=== PATIENT | female | born 1995 | race Caucasian/White ===

== ENCOUNTER 2017-04-12 22:40 | Emergency (ER) | payer MEDICAID ==
[~2017-04-12] VITALS: Ht 160 cm; Wt 61.2 kg
[~2017-04-12 22:40] MED LIST: ACETAMINOPHEN-1 EAC1 PO; BACTRIM DS TAB1 EACH PO; CEPHALEXIN 500500 M3 PO; CIPRO500 MG PO; CIPROFLOXACIN500 M1 PO; CLONAZEPAM 0.50.5 M1 PO; DOCUSATE SODIU100 MG PO; ELIMITE60 GM TP; HYDROCODONE-AP1 EAC6 PO; IBUPROFEN 800800 MG PO; KEPPRA 500 MG500 M1 PO; MEDROLDOSEPACK PO; NAPROSYN500 MG PO; NICOTINE TRANSD21 M1 TRANSDERM; OSELB75 PO; PROAIR HFA8.5 GM INH; TESSALON PERLE100 MG PO; TRIAMCINOLONE A15 G1 TP; XANAX 1 MG TABLE1 MG PO; ZOFRAN ODT4 MG PO; ZOFRAN ODT4 MG SUBLING; ZPAK PO
[2017-04-12] MEDS ORDERED: KEPPRA 500 MG500 M1 PO (22:58)
[2017-04-12 23:19] LABS: URINE BILIRUBIN NEGATIVE (Negative); URINE BLOOD NEGATIVE (Negative); URINE CLARITY CLEAR; URINE COLOR YELLOW; URINE GLUCOSE-RANDOM NEGATIVE (Negative); URINE KETONES NEGATIVE (Negative); URINE LEUKOCYTES-REFLEX NEGATIVE (Negative); URINE NITRITE-REFLEX NEGATIVE (Negative); URINE PROTEIN NEGATIVE (Negative); URINE SPECIFIC GRAVITY 1.015 (1.005-1.030)
[2017-04-12 23:28] LABS: AMP/METHAMP Negative (Negative); BARBITURATES Negative (Negative); BENZODIAZEPINES POSITIVE (Negative); COCAINE Negative (Negative); METHADONE Negative (Negative); OPIATES Negative (Negative); PCP Negative (Negative); THC POSITIVE (Negative)
[2017-04-12 23:30] LABS: ABSOLUTE EOSINOPHILS 0.1 thou/uL (0.0-0.7); ABSOLUTE LYMPHOCYTES 1.3 thou/uL (0.8-5.3); ABSOLUTE MONOCYTES 0.7 thou/uL (0.0-1.2); ABSOLUTE NEUTROPHILS 7.4 thou/uL (1.6-8.1); BASOPHILS 0.3 %; EOSINOPHILS 1.1 %; HEMATOCRIT 36.6 % (37.0-47.0); HEMOGLOBIN 12.5 gm/dL (12.0-15.0); LYMPHOCYTES 13.4 %; MCH 28.3 pg (26.0-34.0); MCHC 34.2 g/dL (28.0-37.0); MONOCYTES 7.4 %; NUCLEATED RBCS 0 /100WBC; PLATELET COUNT* 258 thou/uL (150-400); POLYS 77.8 %; RBC 4.41 mil/uL (4.20-5.00); RDW-CV 13.3 % (10.5-14.5); WBC 9.5 thou/uL (4.0-11.0)
[2017-04-12 23:41] LABS: CALCIUM 8.1 mg/dL (8.5-10.1); CREATININE 0.7 mg/dL (0.6-1.3); POTASSIUM 3.3 mmol/L (3.5-5.1)
[2017-04-12 23:46] LABS: ALBUMIN 3.4 g/dL (3.4-5.0); TOTAL BILIRUBIN 0.3 mg/dL (<0.1-1.0); TOTAL PROTEIN 6.8 g/dL (6.4-8.2)
[2017-04-13] MEDS ORDERED: ZOFRAN ODT4 MG PO (00:18)
[2017-04-13 00:20] VITALS: BP 110/60
== END 2017-04-13 00:20 | disposition home or self-care (01) ==
LOC: M.ERS 22:40
PROVIDERS: Emergency Medicine
DX: G40.89 Other seizures (principal); F41.9 Anxiety disorder, unspecified; G43.909 Migraine, unspecified, not intractable, without status migrainosus; F17.210 Nicotine dependence, cigarettes, uncomplicated; Z87.898 Personal history of other specified conditions; Z88.5 Allergy status to narcotic agent

== ENCOUNTER 2017-04-15 16:57 | Emergency (ER) | payer MEDICAID ==
[~2017-04-15] VITALS: Ht 160 cm; Wt 61.2 kg
[2017-04-15] MEDS ORDERED: IBUPROFEN 800800 M1 PO (18:25)
[2017-04-15 18:35] VITALS: BP 120/70
== END 2017-04-15 18:36 | disposition home or self-care (01) ==
LOC: M.ERS 16:57
DX: S93.401A Sprain of unspecified ligament of right ankle, initial encounter (principal); G43.909 Migraine, unspecified, not intractable, without status migrainosus; F41.9 Anxiety disorder, unspecified; F17.210 Nicotine dependence, cigarettes, uncomplicated; Z88.5 Allergy status to narcotic agent; W10.8XXA Fall (on) (from) other stairs and steps, initial encounter; Y93.89 Activity, other specified; Y92.89 Other specified places as the place of occurrence of the external cause; Y99.8 Other external cause status

== ENCOUNTER 2017-05-01 14:53 | Emergency (ER) | payer MEDICAID ==
[~2017-05-01] VITALS: Ht 160 cm; Wt 61.2 kg
[~2017-05-01 14:53] MED LIST changes: +IBUPROFEN 800800 M1 PO
[2017-05-01 15:27] LABS: URINE BLOOD NEGATIVE (Negative); URINE CLARITY CLEAR; URINE COLOR YELLOW; URINE GLUCOSE-RANDOM NEGATIVE (Negative); URINE KETONES 1+ (Negative); URINE LEUKOCYTES-REFLEX NEGATIVE (Negative); URINE NITRITE-REFLEX NEGATIVE (Negative); URINE PROTEIN NEGATIVE (Negative)
[2017-05-01 15:29] LABS: ICTOTEST (BILI CONFIRMATORY) Negative (Negative); URINE BILIRUBIN 1+ (Negative)
[2017-05-01 15:33] LABS: AMP/METHAMP Negative (Negative); BARBITURATES Negative (Negative); BENZODIAZEPINES POSITIVE (Negative); COCAINE POSITIVE (Negative); METHADONE Negative (Negative); OPIATES Negative (Negative); PCP Negative (Negative); THC POSITIVE (Negative)
[2017-05-01 15:41] LABS: ABSOLUTE BASOPHILS 0.1 thou/uL (0.0-0.2); ABSOLUTE EOSINOPHILS 0.2 thou/uL (0.0-0.7); ABSOLUTE LYMPHOCYTES 2.8 thou/uL (0.8-5.3); ABSOLUTE MONOCYTES 0.6 thou/uL (0.0-1.2); ABSOLUTE NEUTROPHILS 8.6 thou/uL (1.6-8.1); BASOPHILS 0.7 %; EOSINOPHILS 1.5 %; HEMATOCRIT 41.9 % (37.0-47.0); HEMOGLOBIN 14.5 gm/dL (12.0-15.0); LYMPHOCYTES 22.9 %; MCH 27.9 pg (26.0-34.0); MCHC 34.7 g/dL (28.0-37.0); MCV 80.6 fL (80.0-100.0); MONOCYTES 5.1 %; MPV 6.7 fl. (7.2-11.1); NUCLEATED RBCS 0 /100WBC; PLATELET COUNT* 370 thou/uL (150-400); POLYS 69.8 %; RDW-CV 13.5 % (10.5-14.5); WBC 12.3 thou/uL (4.0-11.0)
[2017-05-01 15:57] LABS: CREATININE 0.8 mg/dL (0.6-1.3); POTASSIUM 3.5 mmol/L (3.5-5.1)
[2017-05-01 16:02] LABS: ACETAMINOPHEN < 2 ug/mL (10-30); ALBUMIN 4.7 g/dL (3.4-5.0); ALCOHOL < 10 mg/dL (<10); SALICYLATE 2.8 mg/dL (2.8-20.0); TOTAL BILIRUBIN 0.6 mg/dL (<0.1-1.0); TOTAL PROTEIN 8.8 g/dL (6.4-8.2)
[2017-05-01] MEDS ORDERED: VISTARIL 25 MG25 M1 PO (17:13)
[2017-05-01 17:20] VITALS: BP 120/85
== END 2017-05-01 17:21 | disposition home or self-care (01) ==
LOC: M.ERS 14:53
PROVIDERS: Physician Assistant
DX: F41.9 Anxiety disorder, unspecified (principal); F19.10 Other psychoactive substance abuse, uncomplicated; F32.9 Major depressive disorder, single episode, unspecified; F17.210 Nicotine dependence, cigarettes, uncomplicated; G43.909 Migraine, unspecified, not intractable, without status migrainosus

== ENCOUNTER 2017-05-03 14:30 | Inpatient (IN) | payer MEDICAID ==
[~2017-05-03] VITALS: Ht 160 cm; Wt 86.2 kg
[~2017-05-03 14:30] MED LIST changes: +VISTARIL 25 MG25 M1 PO
[2017-05-03 14:31] VITALS: BP 130/82
[2017-05-03 14:55] LABS: ABSOLUTE BASOPHILS 0.1 thou/uL (0.0-0.2); ABSOLUTE EOSINOPHILS 0.2 thou/uL (0.0-0.7); ABSOLUTE LYMPHOCYTES 2.7 thou/uL (0.8-5.3); ABSOLUTE MONOCYTES 0.6 thou/uL (0.0-1.2); ABSOLUTE NEUTROPHILS 6.2 thou/uL (1.6-8.1); BASOPHILS 0.7 %; HEMOGLOBIN 13.3 gm/dL (12.0-15.0); LYMPHOCYTES 27.4 %; MCH 28.3 pg (26.0-34.0); MCHC 32.3 g/dL (28.0-37.0); MONOCYTES 6.4 %; MPV 7.7 fl. (7.2-11.1); NUCLEATED RBCS 0 /100WBC; PLATELET COUNT* 329 thou/uL (150-400); POLYS 63.5 %; RBC 4.69 mil/uL (4.20-5.00); RDW-CV 13.7 % (10.5-14.5); WBC 9.8 thou/uL (4.0-11.0)
[2017-05-03 14:56] LABS: MCV 87.5 fL (80.0-100.0)
[2017-05-03 14:58] LABS: CALCIUM 9.4 mg/dL (8.5-10.1); CREATININE 0.7 mg/dL (0.6-1.3); POTASSIUM 3.6 mmol/L (3.5-5.1)
[2017-05-03 15:03] LABS: TOTAL BILIRUBIN 0.5 mg/dL (<0.1-1.0); TOTAL PROTEIN 7.4 g/dL (6.4-8.2)
[2017-05-03 15:21] LABS: URINE BILIRUBIN NEGATIVE (Negative); URINE BLOOD NEGATIVE (Negative); URINE CLARITY CLEAR; URINE COLOR YELLOW; URINE GLUCOSE-RANDOM NEGATIVE (Negative); URINE KETONES NEGATIVE (Negative); URINE LEUKOCYTES-REFLEX NEGATIVE (Negative); URINE NITRITE-REFLEX NEGATIVE (Negative); URINE PROTEIN NEGATIVE (Negative); URINE UROBILINOGEN 0.2 E.U./dl (0.2-1.0)
[2017-05-03 15:29] LABS: AMP/METHAMP Negative (Negative); BARBITURATES Negative (Negative); BENZODIAZEPINES POSITIVE (Negative); COCAINE POSITIVE (Negative); METHADONE Negative (Negative); OPIATES Negative (Negative); PCP Negative (Negative); THC POSITIVE (Negative)
--- NOTE | 2017-05-03 15:29 | NUR ---
PATIENT UNABLE TO ANSWER QUESTIONS. JUST SAYS "MOM, MOM MOM" WHEN ASKED IF SHE WANTS US TO CALL MOM SHE SHAKES HEAD NO. BOY FRIEND AT BEDSIDE ASKED HER IF HE SHOULD CALL HER GRANDMA AND SHE SHOOK HER HEAD NO WELL. DENIES ANY DRUG OR ALCOHOL USE.
[2017-05-03 20:00] VITALS: BP 113/62
[2017-05-04] VITALS (7 sets, daily range): BP systolic 100–110; BP diastolic 56–69
--- NOTE | 2017-05-04 00:23 | NUR ---
PATIENT ADMITTED TO THE FLOOR AT SHIFT CHANGE, ARRIVED APPROX 1999. PATIENT ADMITTED FOR AMS. PATIENT WAS ALERT AND ORIENTED X 4, LUNGS CTA, HR REG, SKIN INTACT EXPECTED AN ABRASION TO FORHEAD, FROM PREVIOUS INCIDENT PRIOR TO COMING IN TODAY IN ER. DR METAL CONTROL COORDINATOR WAS NOTIFIED PATIENT IS ON KEPPRA AT HOME. DR STATED WILL PLACE ORDER FOR KEPPRA. WILL WAITING FOR ORDER APPROX 2319, WAS CALLED TO ROOM. WHEN THIS NURSE ENTERED FOUND PATIENT ON FLOOR WITH PCT AND ANOTHER NURSE AT HER SIDE. PATIENT WAS LOWERED TO GROUND PATIENT TOLD TECH THAT SHE WAS DIZZY. PATIENT WAS SHAKING FOR ABOUT 3 MINS. ATIVAN 1MG GIVEN IV. PLACE IN ROOM CLOSER TO NURSES STATION. KEPPRA START AND HAS SINCE INFUSED. PATIENT IS ALERT AND ORIENTED TO SURROUNDS. BED ALARM ON, CALL LIGHT IN REACH. FALL PRECAUTIONS IN PLACE. PATIENT TOLD SHE IS ON BEDREST REST OF NIGHT.
--- NOTE | 2017-05-04 04:14 | NUR ---
SLEEPING MOST OF NIGHT. CONT. TO MONITOR DUE TO SEIZURE DX. SIDERAILS PADDED, BED IN LOW POSITION, BED ALARM ON. CALL LIGHT WITHIN REACH. CONT. WITH PLAN OF CARE.
--- NOTE | 2017-05-04 09:46 | NUR ---
ASSUMED CARE PF PT THIS AM AROUND 0715- LIMITED RADIOLOGY TECHNICIAN IN PLACE ORDERED, TRACING SR- UPON ASSESSMENT PT NOTED TO BE RESTING IN BED, EYES CLOSED- PT A&O X4- CONTINENT OF BOWEL AND BLADDER- ASSIST X1 WITH TRANSFERS FOR SAFETY, SEIZURE PRECAUTIONS IN PLACE INDICATED- LCTA, RESP EVEN AND UN-LABORED- VSS, O2 SAT 96% ON RA- ABDOMEN SOFT/ROUND/NON-TENDER, BS X4 QUADS- LAST BM REPORTED 05/03/17- IV NOTED TO LEFT AC INTACT AND SL, IV KEPPRA GIVEN THIS AM PRESCRIBED- LEFT ANKLE NOED WITH BRACE IN PLACE R/T REPORTED FX PER PT- PT RATES PAIN 8/10 TO HEAD THIS AM- SCHEDULED TORADOL GIVEN THIS AM PRESCIBED, WITH NOTED EFFECTIVENESS- PT CURRENLTY RESTING IN BED, PHYSICAL SECURITY SPECIALIST AT SIDE COMPLETING TESTING PRESCRIBED- CALL LIGHT AND PERSONAL BELONGINGS WITH IN REACH- HOURLY ROUNDS IN PLACE R/T SAFETY/NEEDS- ALL NEEDS MET AT THIS TIME-WCTM
--- NOTE | 2017-05-04 16:34 | EKG ---
[place] [address] ELECTROCARDIOGRAM REPORT Name: PILIGERALD RIVERS Room: [address] ADM IN .R.#: [id number] Admission: 05/03/17 Attend Phys: Gabby Oquendo Discharge: Date of : [birth year] Report #: [id number] THIS REPORT FOR: //name// [facility] ED Test Date: 2017-05-03 Test Time: 14:36:56 Pat Name: GERALD ALEJANDRE Department: Room: [address] Gender: F Cartridge Filler: Mamadou VILLARREAL : 1995 Requested By: Mercedes Mckinney Order Number: [id number] Pillo MD: Bienvenido Andre Measurements Intervals [place] Rate: 73 P: 51 KS: 148 QRS: 52 QRSD: 101 T: 24 QT: 410 QTc: 452 Interpretive Statements Sinus rhythm Nonspecific T abnormalities, anterior leads Compared to ECG 10/24/2015 09:10:42 no change Electronically Signed On 05-04-2017 16:33:46 DRY CURE WORKER by Bienvenido Andre [email or web address] <ELECTRONICALLY SIGNED> By: Bienvenido Andre MD, [facility] 05/04/17 1633 1436 1436 Bienvenido Andre MD, [facility] /EPI
--- NOTE | 2017-05-04 17:04 | NUR ---
PT CURRENTLY RESTING IN BED, BOYFRIEND AT SIDE- SELF STORAGE MANAGER IN PLACE AND CONTINUED ORDERED, TRACING SR- SEIZURE PRECAUTIONS IN PLACE INDICATED- IV TO LEFT AC INTACT, REINFORCED THIS SHIFT WITH DRESSING CHANGE R/T LEAKAGE- MRI COMPLETED THIS SHIFT WELL EEG ORDERED, POST EARINGS NEEDING TO BE REMOVED PER TECH THIS SHIFT- D/C PENDING NEURO- HERE TO ASSESS THIS SHIFT WITH NEW ORDERS NOTED FOR ECHO, TSH, VIT B12, MRA CAROID W/O CONTRAST AND OF N[place]TON OF [place]IG[place]- COMMUNICATES THAT HE WOULD LIKE PT TO STAY ANOTHER NIGHT TO COMPLETE TESTING WITH POSS D/C 05/05/17- PT DENIES ANY C/O PAIN/DISCOMFORT AT THIS TIME- CALL LIGHT AND PERSONAL BELONGINGS WITH IN REACH-ALL NEEDS MET AT THIS TIME- AMBIKA
--- NOTE | 2017-05-04 22:00 | NUR ---
PT WANTED TO LEAVE AMA, PROVIDER NOTIFIED. NEURO AND PRIMARY CONTACTED. BOTH SIGNED OFFED. HOUSE SUPPERVIOR CALLED IN NEW MEDICATION TO ANABELLA. CM TO SET UP OUT PT ECHO. DISCHARGE INSTRUCTIONS GIVEN TO PT. MONITOR AND IV REMOVED.
[2017-05-04] MEDS ORDERED: FOLIC ACID1 MG PO (22:47)
--- NOTE | 2017-05-05 07:27 | EEG ---
[address] [address] EEG STUDY REPORT Name: GERALD ALEJANDRE Room: [address] IN M.R.#: [id number] Admission: 05/03/17 Attend Phys: Gabby Oquendo Discharge: 05/04/17 Date of : [birth year] Report #: [id number] THIS REPORT FOR: //name// CC: Elisabeth Shelby This patient is being evaluated for a seizure disorder. EEG was done by placing the electrodes by standard 10/20 system of electrode placement. Both referential and sequential montages were used for recording. Background activity in this patient's EEG is about 9 Hz and 30 microvolts. Large portion of this patient's EEG was obtained when the patient was asleep. That is associated with bilaterally symmetrical sleep spindle and vertex sharp waves. Photic stimulation is unremarkable. Throughout the record, no active epileptiform activity was noticed. IMPRESSION: This patient's EEG is within normal limits. No active epileptiform activity was noticed. Thank you very much for this referral. <ELECTRONICALLY SIGNED> By: Qamar Crooks MD 05/05/17 0727 0704 0711Qamar Crooks MD /nt
--- NOTE | 2017-05-05 07:27 | CON ---
[facility] [address] [place] [address] CONSULTATION Name: GERALD ALEJANDRE Room: [address] IN M.R.#: [id number] Admission: 05/03/17 Attend Phys: Gabby Oquendo Discharge: 05/04/17 Date of : [birth year] Report #: [id number] THIS REPORT FOR: //name// CC: Elisabeth Shelby DATE OF SERVICE: 05/04/2017 HISTORY OF PRESENT ILLNESS: This is a 22-year-old female patient who was evaluated by me for seizures. The history is taken from the patient, but all the history is not reliable. Some of the history she provides does not correlate with what is present in the chart. She said a few years ago she bought some tramadol on the street and overdosed herself on tramadol. She had a seizure. She was not put on any anticonvulsants at that time, then she had another seizure at work, which was a grand mal seizure and she was started on Keppra. She has taken Keppra intermittently. She was supposed to be on 500 mg of Keppra twice a day, but at one time, she was supposed to be on 750 b.i.d. She was supposed to follow up with Dr. Sim as per prior notes, but I do not think she ever did. She says that she did not take cocaine for a few weeks, but her urine drug screen is positive for cocaine as well as marijuana. Boyfriend noticed her having a seizure and she may have had another seizure here. She was twitching and was unresponsive after this happened. When she came in she was also unresponsive. REVIEW OF SYSTEMS: It looks like she has a pretty significant substance abuse problem. She does have a history of panic attack. She has a history of what looks like seizures, but it is not certain. FAMILY HISTORY: Negative for congenital epilepsy. SOCIAL HISTORY: She indicates that she has a problem with substance abuse, but she is not straightforward with history. It looks like she has used cocaine recently. PHYSICAL EXAMINATION: When I saw this patient, she was alert, she was responsive. She was able to follow simple commands. Her memory, fund of knowledge was at the baseline. Cranial nerve examination 2-12 was unremarkable. Strength, sensation, reflexes and tone was symmetrical. There was no papilledema. There was no carotid bruit. CARDIAC: Did not show any definite abnormality. Blood pressure was 110/59, pulse was 94, temperature is 97.8. LABORATORY DATA: White count was normal at 9.8. Her calcium was normal and TSH was normal. IMPRESSION: It is possible this patient has seizure. [place] [address] CONSULTATION Name: KYREE ALEJANDREJUSTIN RIVERS Room: [address] IN M.R.#: [id number] Admission: 05/03/17 Attend Phys: Gabby Oquendo Discharge: 05/04/17 Date of : [birth year] Report #: [id number] and polysubstance abuse is very strong. I had a long talk with the patient and indicated that she needs to stop using those substances and should not even use epileptiform prescription medication and potentially catastrophic and fatal complication from this polysubstance abuse. She understood, although she can continue Keppra but she should avoid any . She must take folic acid on a daily basis. She must take seizure precautions and she cannot drive for 6 months at least. Those were discussed with her and I have instructed the nurses to discuss that with her too. Nurses called me today and said that the patient wants to go home and she is saying that if she is not allowed to go home, she is going to sign AMA. I told the nurses to call her admitting doctor and they need to decide whether they want to let her go home or want her to sign AMA and what they want to do with the echocardiogram, which is not done yet. I will defer that to the admitting doctor and they are going to decide that. RECOMMENDATION: 1. As far as Neurology workup is concerned, she does have some abnormality on the MRI. It has not changed much and MRI is okay. Those are chronic changes and she can discuss that with her neurologist, Dr. Sim. 2. She must take strict seizure precautions and she cannot drive for 6 months. Nurses will reinforce that. 3. She must stop using cocaine. 4. She must stay under supervision. 5. I will give her a prescription for Keppra 750 b.i.d. I increased the dose to 750 b.i.d. from 500 b.i.d. She must take folic acid, she must avoid and she must see Dr. Sim, neurologist within a week and further management will be done by her. I discussed with the nurses that further management and discharge or making her go AMA and cardiac workup including echocardiogram and when to do it, I will defer to admitting and they must address that and all those orders should come from them. Thank you very much for this referral and if you have any question, please feel free to contact me. <ELECTRONICALLY SIGNED> By: Qamar Crooks MD 05/05/17 0727 [id number] [id number] young Ochoa
== END 2017-05-04 23:10 | disposition left against medical advice (07) | DRG 101 ==
LOC: M.ERS 14:30 → M.2W 17:57 → M.TBA-ER 17:57 → M.2W 19:59
PROVIDERS: Personal Emergency Response Attendant; ADMIT Internal Medicine
DX: G40.909 Epilepsy, unspecified, not intractable, without status epilepticus (principal); R47.01 Aphasia; G43.909 Migraine, unspecified, not intractable, without status migrainosus; F41.9 Anxiety disorder, unspecified; F14.129 Cocaine abuse with intoxication, unspecified; F17.210 Nicotine dependence, cigarettes, uncomplicated; F32.9 Major depressive disorder, single episode, unspecified; F19.10 Other psychoactive substance abuse, uncomplicated; Z53.21 Procedure and treatment not carried out due to patient leaving prior to being seen by health care provider; Z79.899 Other long term (current) drug therapy; Z88.8 Allergy status to other drugs, medicaments and biological substances

== ENCOUNTER 2017-05-17 16:44 | Emergency (ER) | payer MEDICAID ==
[~2017-05-17] VITALS: Ht 160 cm; Wt 59.0 kg
[~2017-05-17 16:44] MED LIST changes: +FOLIC ACID1 MG PO
[2017-05-17 17:33] LABS: URINE BILIRUBIN NEGATIVE (Negative); URINE BLOOD TRACE (Negative); URINE CLARITY CLEAR; URINE COLOR YELLOW; URINE GLUCOSE-RANDOM NEGATIVE (Negative); URINE KETONES 1+ (Negative); URINE LEUKOCYTES-REFLEX NEGATIVE (Negative); URINE NITRITE-REFLEX NEGATIVE (Negative); URINE PROTEIN TRACE (Negative); URINE SPECIFIC GRAVITY >= 1.030 (1.005-1.030); URINE UROBILINOGEN 0.2 E.U./dl (0.2-1.0)
[2017-05-17 17:37] LABS: ABSOLUTE BASOPHILS 0.1 thou/uL (0.0-0.2); ABSOLUTE LYMPHOCYTES 1.7 thou/uL (0.8-5.3); ABSOLUTE MONOCYTES 0.6 thou/uL (0.0-1.2); ABSOLUTE NEUTROPHILS 13.8 thou/uL (1.6-8.1); BASOPHILS 0.4 %; EOSINOPHILS 0.3 %; HEMATOCRIT 40.1 % (37.0-47.0); HEMOGLOBIN 13.6 gm/dL (12.0-15.0); LYMPHOCYTES 10.6 %; MCH 28.2 pg (26.0-34.0); MCV 83.1 fL (80.0-100.0); MONOCYTES 3.8 %; MPV 7.3 fl. (7.2-11.1); NUCLEATED RBCS 0 /100WBC; PLATELET COUNT* 321 thou/uL (150-400); POLYS 84.9 %; RBC 4.83 mil/uL (4.20-5.00); RDW-CV 13.3 % (10.5-14.5); WBC 16.2 thou/uL (4.0-11.0)
[2017-05-17 17:42] LABS: AMP/METHAMP Negative (Negative); BARBITURATES Negative (Negative); BENZODIAZEPINES POSITIVE (Negative); COCAINE Negative (Negative); METHADONE Negative (Negative); OPIATES Negative (Negative); PCP Negative (Negative); THC POSITIVE (Negative)
[2017-05-17 17:44] LABS: CALCIUM 9.3 mg/dL (8.5-10.1); CREATININE 0.8 mg/dL (0.6-1.3); POTASSIUM 3.7 mmol/L (3.5-5.1)
[2017-05-17 17:56] LABS: ALBUMIN 4.3 g/dL (3.4-5.0); TOTAL BILIRUBIN 0.5 mg/dL (<0.1-1.0)
[2017-05-17] MEDS ORDERED: ZOFRAN4 MG PO (18:44)
[2017-05-17 18:50] VITALS: BP 109/65
== END 2017-05-17 18:51 | disposition home or self-care (01) ==
LOC: M.ERS 16:44
PROVIDERS: Emergency Medicine
DX: R56.9 Unspecified convulsions (principal); M41.9 Scoliosis, unspecified; F17.210 Nicotine dependence, cigarettes, uncomplicated; Z88.6 Allergy status to analgesic agent

== ENCOUNTER 2017-07-01 19:56 | Emergency (ER) | payer OTHER, MEDICAID ==
[~2017-07-01] VITALS: Ht 160 cm; Wt 64.9 kg
[~2017-07-01 19:56] MED LIST changes: +ZOFRAN4 MG PO
[2017-07-01 20:22] LABS: URINE BILIRUBIN NEGATIVE (Negative); URINE BLOOD NEGATIVE (Negative); URINE CLARITY CLEAR; URINE COLOR STRAW; URINE GLUCOSE-RANDOM NEGATIVE (Negative); URINE KETONES TRACE (Negative); URINE LEUKOCYTES-REFLEX NEGATIVE (Negative); URINE NITRITE-REFLEX NEGATIVE (Negative); URINE PROTEIN NEGATIVE (Negative); URINE UROBILINOGEN 0.2 E.U./dl (0.2-1.0)
[2017-07-01 20:24] LABS: ABSOLUTE BASOPHILS 0.1 thou/uL (0.0-0.2); ABSOLUTE EOSINOPHILS 0.2 thou/uL (0.0-0.7); ABSOLUTE LYMPHOCYTES 3.6 thou/uL (0.8-5.3); ABSOLUTE MONOCYTES 0.8 thou/uL (0.0-1.2); ABSOLUTE NEUTROPHILS 11.5 thou/uL (1.6-8.1); BASOPHILS 0.6 %; EOSINOPHILS 1.1 %; LYMPHOCYTES 22.4 %; MCHC 33.4 g/dL (28.0-37.0); MCV 83.9 fL (80.0-100.0); MONOCYTES 5.2 %; MPV 6.9 fl. (7.2-11.1); NUCLEATED RBCS 0 /100WBC; PLATELET COUNT* 350 thou/uL (150-400); POLYS 70.7 %; RBC 5.01 mil/uL (4.20-5.00); RDW-CV 13.7 % (10.5-14.5); WBC 16.2 thou/uL (4.0-11.0)
[2017-07-01 20:32] LABS: ANION GAP 13 mmol/L (7-16); BUN 4 mg/dL (7-18); CALCIUM 9.9 mg/dL (8.5-10.1); CHLORIDE 104 mmol/L (98-107); CO2 25 mmol/L (21-32); CREATININE 0.7 mg/dL (0.6-1.3); GLUCOSE 97 mg/dL (70-99); POTASSIUM 3.9 mmol/L (3.5-5.1); SODIUM 142 mmol/L (136-145)
[2017-07-01 20:33] LABS: AMP/METHAMP Negative (Negative); BARBITURATES Negative (Negative); BENZODIAZEPINES POSITIVE (Negative); COCAINE Negative (Negative); METHADONE Negative (Negative); OPIATES Negative (Negative); PCP Negative (Negative); THC POSITIVE (Negative)
[2017-07-01 20:39] LABS: ALBUMIN 4.4 g/dL (3.4-5.0); ALKALINE PHOSPHATASE 68 U/L (46-116); SGOT 12 U/L (15-37); SGPT 18 U/L (30-65); TOTAL BILIRUBIN 0.6 mg/dL (<0.1-1.0); TOTAL PROTEIN 8.2 g/dL (6.4-8.2); TROPONIN-I LEVEL <0.06 ng/mL (<0.06)
[2017-07-01 22:00] VITALS: BP 107/70
--- NOTE | 2017-07-02 13:53 | EKG ---
[place] [address] ELECTROCARDIOGRAM REPORT Name: GERALD ALEJANDRE Room: [facility]#: [id number] Admission: 07/01/17 Attend Phys: Discharge: 07/01/17 Date of : [birth year] Report #: [id number] THIS REPORT FOR: //name// [facility] ED Test Date: 2017-07-01 Test Time: 20:08:13 Pat Name: GERALD ALEJANDRE Department: Room: Gender: F Blood Bank Coordinator: : 1995 Requested By: Zeke Kent Order Number: [id number] MD: Bienvenido Andre Measurements Intervals [place] Rate: 78 P: 44 SC: 148 QRS: 56 QRSD: 91 T: 7 QT: 370 QTc: 422 Interpretive Statements Sinus rhythm Probable left atrial enlargement Nonspecific T abnormalities, anterior leads Compared to ECG 05/03/2017 14:36:56 No significant changes Electronically Signed On 07-02-2017 13:53:06 CDT by Bienvenido Andre [email or web address] <ELECTRONICALLY SIGNED> By: Bienvenido Andre MD, [facility] 07/02/17 1353 07 07 Bienvenido Andre MD, FACC /EPI
== END 2017-07-01 22:20 | disposition home or self-care (01) ==
LOC: M.ERS 19:56
PROVIDERS: Emergency Medicine Emergency Medical Services
DX: R56.9 Unspecified convulsions (principal); Z88.8 Allergy status to other drugs, medicaments and biological substances; F17.210 Nicotine dependence, cigarettes, uncomplicated

== ENCOUNTER 2017-08-22 12:58 | Emergency (ER) | payer OTHER, MEDICAID ==
[~2017-08-22] VITALS: Ht 160 cm; Wt 65.8 kg
[2017-08-22 13:46] LABS: ABSOLUTE BASOPHILS 0.1 thou/uL (0.0-0.2); ABSOLUTE EOSINOPHILS 0.1 thou/uL (0.0-0.7); ABSOLUTE MONOCYTES 0.7 thou/uL (0.0-1.2); ABSOLUTE NEUTROPHILS 9.3 thou/uL (1.6-8.1); BASOPHILS 0.6 %; HEMATOCRIT 39.7 % (37.0-47.0); HEMOGLOBIN 13.3 gm/dL (12.0-15.0); LYMPHOCYTES 16.3 %; MCH 27.9 pg (26.0-34.0); MCHC 33.5 g/dL (28.0-37.0); MCV 83.3 fL (80.0-100.0); MONOCYTES 5.6 %; MPV 7.4 fl. (7.2-11.1); NUCLEATED RBCS 0 /100WBC; PLATELET COUNT* 321 thou/uL (150-400); POLYS 76.5 %; RBC 4.77 mil/uL (4.20-5.00); RDW-CV 13.5 % (10.5-14.5); WBC 12.2 thou/uL (4.0-11.0)
[2017-08-22 13:52] LABS: CALCIUM 9.3 mg/dL (8.5-10.1); CREATININE 0.8 mg/dL (0.6-1.3); POTASSIUM 3.5 mmol/L (3.5-5.1)
[2017-08-22 13:53] LABS: URINE BILIRUBIN NEGATIVE (Negative); URINE BLOOD NEGATIVE (Negative); URINE CLARITY CLEAR; URINE COLOR YELLOW; URINE GLUCOSE-RANDOM NEGATIVE (Negative); URINE KETONES NEGATIVE (Negative); URINE LEUKOCYTES-REFLEX NEGATIVE (Negative); URINE NITRITE-REFLEX NEGATIVE (Negative); URINE PROTEIN NEGATIVE (Negative); URINE UROBILINOGEN 0.2 E.U./dl (0.2-1.0)
[2017-08-22 14:04] LABS: AMP/METHAMP Negative (Negative); BARBITURATES Negative (Negative); BENZODIAZEPINES POSITIVE (Negative); COCAINE Negative (Negative); METHADONE Negative (Negative); OPIATES Negative (Negative); PCP Negative (Negative); THC POSITIVE (Negative)
[2017-08-22 14:17] VITALS: BP 103/70
[2017-08-22 14:36] LABS: ALBUMIN 4.2 g/dL (3.4-5.0); TOTAL BILIRUBIN 0.6 mg/dL (<0.1-1.0)
== END 2017-08-22 14:17 | disposition home or self-care (01) ==
LOC: M.ERS 12:58
PROVIDERS: Physician Assistant
DX: F41.1 Generalized anxiety disorder (principal); F41.0 Panic disorder [episodic paroxysmal anxiety]; F31.9 Bipolar disorder, unspecified

== ENCOUNTER 2018-03-04 18:30 | Emergency (ER) | payer OTHER ==
[~2018-03-04] VITALS: Ht 160 cm; Wt 90.7 kg
[2018-03-04 18:46] VITALS: BP 128/83
== END 2018-03-04 18:49 | disposition left against medical advice (07) ==
LOC: M.ERS 18:30
DX: Z53.21 Procedure and treatment not carried out due to patient leaving prior to being seen by health care provider (principal)

== ENCOUNTER 2018-07-13 13:49 | Emergency (ER) | payer OTHER ==
[~2018-07-13] VITALS: Ht 160 cm; Wt 72.6 kg
[2018-07-13 13:58] VITALS: BP 127/88
[2018-07-13] MEDS ORDERED: CLONAZEPAM 0.50.5 M1 PO (14:00)
[2018-07-13] MEDS ORDERED: ZOFRAN ODT4 MG PO (14:03)
[2018-07-13] MEDS ORDERED: ACETAMINOPHEN-1 EAC1 PO (14:03)
[2018-07-13] MEDS ORDERED: KEFLEX500 M1 PO (14:03)
== END 2018-07-13 14:13 | disposition home or self-care (01) ==
LOC: M.ERS 13:49
DX: K08.89 Other specified disorders of teeth and supporting structures (principal); F17.210 Nicotine dependence, cigarettes, uncomplicated; M41.9 Scoliosis, unspecified; F31.9 Bipolar disorder, unspecified; F41.9 Anxiety disorder, unspecified; Z88.6 Allergy status to analgesic agent

== ENCOUNTER 2018-07-30 22:25 | Emergency (ER) | payer OTHER ==
[~2018-07-30] VITALS: Ht 160 cm; Wt 90.7 kg
[~2018-07-30 22:25] MED LIST changes: +KEFLEX500 M1 PO
[2018-07-31] MEDS ORDERED: BUTALB-APAP-CA1 EACH PO (00:27)
[2018-07-31] MEDS ORDERED: ZANAFLEX4 MG PO (00:27)
[2018-07-31] MEDS ORDERED: IBUPROFEN 800800 M1 PO (00:27)
[2018-07-31 01:21] VITALS: BP 104/68
== END 2018-07-31 01:21 | disposition home or self-care (01) ==
LOC: M.ERS 22:25
DX: S06.0X0A Concussion without loss of consciousness, initial encounter (principal); S16.1XXA Strain of muscle, fascia and tendon at neck level, initial encounter; S39.012A Strain of muscle, fascia and tendon of lower back, initial encounter; S29.012A Strain of muscle and tendon of back wall of thorax, initial encounter; S40.012A Contusion of left shoulder, initial encounter; S70.01XA Contusion of right hip, initial encounter; M41.9 Scoliosis, unspecified; F31.9 Bipolar disorder, unspecified; F41.9 Anxiety disorder, unspecified; F17.210 Nicotine dependence, cigarettes, uncomplicated; Z88.6 Allergy status to analgesic agent; Y04.2XXA Assault by strike against or bumped into by another person, initial encounter; Y92.89 Other specified places as the place of occurrence of the external cause; Y93.89 Activity, other specified; Y99.8 Other external cause status

== ENCOUNTER 2018-09-19 21:00 | Emergency (ER) | payer OTHER ==
[~2018-09-19] VITALS: Ht 160 cm; Wt 90.7 kg
[~2018-09-19 21:00] MED LIST changes: +BUTALB-APAP-CA1 EACH PO; +ZANAFLEX4 MG PO
[2018-09-19] MEDS ORDERED: KEFLEX500 M1 PO (22:44)
[2018-09-19 22:58] VITALS: BP 111/77
== END 2018-09-19 22:58 | disposition home or self-care (01) ==
LOC: M.ERS 21:00
DX: K04.7 Periapical abscess without sinus (principal); F31.9 Bipolar disorder, unspecified; F41.9 Anxiety disorder, unspecified; M41.9 Scoliosis, unspecified; F17.210 Nicotine dependence, cigarettes, uncomplicated; Z88.6 Allergy status to analgesic agent

== ENCOUNTER 2018-11-18 14:21 | Emergency (ER) | payer OTHER ==
[~2018-11-18] VITALS: Ht 160 cm; Wt 87.5 kg
[2018-11-18] MEDS ORDERED: KEFLEX500 M1 PO (15:07)
[2018-11-18 15:20] VITALS: BP 117/78
[2018-11-18 15:37] LABS: URINE BILIRUBIN NEGATIVE (Negative); URINE BLOOD NEGATIVE (Negative); URINE CLARITY CLEAR; URINE COLOR YELLOW; URINE GLUCOSE-RANDOM NEGATIVE (Negative); URINE KETONES NEGATIVE (Negative); URINE LEUKOCYTES-REFLEX NEGATIVE (Negative); URINE NITRITE-REFLEX NEGATIVE (Negative); URINE PROTEIN NEGATIVE (Negative); URINE SPECIFIC GRAVITY 1.015 (1.005-1.030); URINE UROBILINOGEN 0.2 E.U./dl (0.2-1.0)
== END 2018-11-18 15:22 | disposition home or self-care (01) ==
LOC: M.ERS 14:21
PROVIDERS: Physician Assistant
DX: J06.9 Acute upper respiratory infection, unspecified (principal); M54.5 Low back pain; M54.6 Pain in thoracic spine; M41.9 Scoliosis, unspecified; F31.9 Bipolar disorder, unspecified; F41.9 Anxiety disorder, unspecified; F17.210 Nicotine dependence, cigarettes, uncomplicated; Z88.6 Allergy status to analgesic agent

== ENCOUNTER 2018-11-20 10:57 | Emergency (ER) | payer OTHER ==
[~2018-11-20] VITALS: Ht 160 cm; Wt 81.7 kg
[2018-11-20] MEDS ORDERED: IBUPROFEN 800800 M1 PO (11:59)
[2018-11-20 12:50] VITALS: BP 115/79
== END 2018-11-20 12:50 | disposition home or self-care (01) ==
LOC: M.ERS 10:57
DX: S93.491A Sprain of other ligament of right ankle, initial encounter (principal); S93.691A Other sprain of right foot, initial encounter; F31.9 Bipolar disorder, unspecified; F41.9 Anxiety disorder, unspecified; F32.9 Major depressive disorder, single episode, unspecified; F17.210 Nicotine dependence, cigarettes, uncomplicated; Z88.6 Allergy status to analgesic agent; W18.39XA Other fall on same level, initial encounter; Y93.89 Activity, other specified; Y92.89 Other specified places as the place of occurrence of the external cause; Y99.8 Other external cause status

== ENCOUNTER 2019-06-02 16:56 | Emergency (ER) | payer OTHER ==
[~2019-06-02] VITALS: Ht 160 cm; Wt 90.7 kg
[2019-06-02 17:52] LABS: URINE BILIRUBIN NEGATIVE (Negative); URINE BLOOD TRACE (Negative); URINE CLARITY CLEAR; URINE COLOR YELLOW; URINE GLUCOSE-RANDOM NEGATIVE (Negative); URINE KETONES NEGATIVE (Negative); URINE LEUKOCYTES-REFLEX NEGATIVE (Negative); URINE NITRITE-REFLEX NEGATIVE (Negative); URINE PROTEIN NEGATIVE (Negative); URINE SPECIFIC GRAVITY 1.015 (1.005-1.030); URINE UROBILINOGEN 0.2 E.U./dl (0.2-1.0)
[2019-06-02] MEDS ORDERED: SUPRAX400 M1 PO (18:02)
[2019-06-02] MEDS ORDERED: AZITHROMYCIN500 MG PO (18:02)
[2019-06-02 18:19] VITALS: BP 122/68
== END 2019-06-02 18:20 | disposition home or self-care (01) ==
LOC: M.ERS 16:56
PROVIDERS: Physician Assistant
DX: N89.8 Other specified noninflammatory disorders of vagina (principal); F41.9 Anxiety disorder, unspecified; F32.9 Major depressive disorder, single episode, unspecified; F17.210 Nicotine dependence, cigarettes, uncomplicated; Z88.8 Allergy status to other drugs, medicaments and biological substances

== ENCOUNTER 2019-06-23 23:03 | Emergency (ER) | payer OTHER ==
[~2019-06-23] VITALS: Ht 160 cm; Wt 81.7 kg
[~2019-06-23 23:03] MED LIST changes: +AZITHROMYCIN500 MG PO; +SUPRAX400 M1 PO
[2019-06-24 01:06] LABS: INFLUENZA A ANTIGEN Negative (Negative)
[2019-06-24 01:30] VITALS: BP 132/70
== END 2019-06-24 01:30 | disposition home or self-care (01) ==
LOC: M.ERS 23:03
PROVIDERS: Personal Emergency Response Attendant
DX: J10.1 Influenza due to other identified influenza virus with other respiratory manifestations (principal); F41.9 Anxiety disorder, unspecified; F17.210 Nicotine dependence, cigarettes, uncomplicated; F12.90 Cannabis use, unspecified, uncomplicated; F32.9 Major depressive disorder, single episode, unspecified; Z79.899 Other long term (current) drug therapy; Z88.5 Allergy status to narcotic agent

== ENCOUNTER 2019-06-30 21:36 | Emergency (ER) | payer OTHER ==
[~2019-06-30] VITALS: Ht 170.2 cm; Wt 86.2 kg
[2019-06-30 22:00] LABS: URINE BILIRUBIN NEGATIVE (Negative); URINE BLOOD NEGATIVE (Negative); URINE CLARITY CLEAR; URINE COLOR YELLOW; URINE GLUCOSE-RANDOM NEGATIVE (Negative); URINE KETONES NEGATIVE (Negative); URINE LEUKOCYTES-REFLEX NEGATIVE (Negative); URINE NITRITE-REFLEX NEGATIVE (Negative); URINE PROTEIN NEGATIVE (Negative); URINE SPECIFIC GRAVITY 1.025 (1.005-1.030); URINE UROBILINOGEN 0.2 E.U./dl (0.2-1.0)
[2019-06-30 22:27] LABS: INFLUENZA A ANTIGEN Negative (Negative)
[2019-06-30 22:27] LABS: ABSOLUTE BASOPHILS 0.1 thou/uL (0.0-0.2); ABSOLUTE EOSINOPHILS 0.4 thou/uL (0.0-0.7); ABSOLUTE LYMPHOCYTES 3.7 thou/uL (0.8-5.3); ABSOLUTE MONOCYTES 0.6 thou/uL (0.0-1.2); ABSOLUTE NEUTROPHILS 8.4 thou/uL (1.6-8.1); BASOPHILS 0.6 %; EOSINOPHILS 3.3 %; HEMATOCRIT 35.5 % (37.0-47.0); HEMOGLOBIN 12.4 gm/dL (12.0-15.0); LYMPHOCYTES 27.6 %; MCH 27.7 pg (26.0-34.0); MONOCYTES 4.6 %; MPV 6.9 fl. (7.2-11.1); NUCLEATED RBCS 0 /100WBC; PLATELET COUNT* 360 thou/uL (150-400); POLYS 63.9 %; RBC 4.49 mil/uL (4.20-5.00); RDW-CV 14.3 % (10.5-14.5); WBC 13.2 thou/uL (4.0-11.0)
[2019-06-30 22:35] LABS: CALCIUM 8.4 mg/dL (8.5-10.1); CREATININE 0.8 mg/dL (0.6-1.3); POTASSIUM 3.5 mmol/L (3.5-5.1)
[2019-06-30 22:39] LABS: ALBUMIN 3.5 g/dL (3.4-5.0); TOTAL BILIRUBIN 0.2 mg/dL (<0.1-1.0); TOTAL PROTEIN 7.1 g/dL (6.4-8.2)
[2019-06-30] MEDS ORDERED: PROAIR HFA8.5 GM INH ×2 (23:28→23:31)
[2019-06-30 23:44] VITALS: BP 122/70
== END 2019-06-30 23:45 | disposition home or self-care (01) ==
LOC: M.ERS 21:36
PROVIDERS: Emergency Medicine
DX: J10.1 Influenza due to other identified influenza virus with other respiratory manifestations (principal); F31.9 Bipolar disorder, unspecified; F41.9 Anxiety disorder, unspecified; F17.210 Nicotine dependence, cigarettes, uncomplicated; Z88.6 Allergy status to analgesic agent

== ENCOUNTER 2020-01-08 15:10 | Emergency (ER) | payer OTHER ==
[~2020-01-08] VITALS: Ht 160 cm; Wt 77.1 kg
[2020-01-08] MEDS ORDERED: FLONASE 0.05%50 MCG NASAL ×2 (16:04→16:21)
[2020-01-08] MEDS ORDERED: AUGMENTIN 500-1 EACH PO (16:04)
[2020-01-08 16:14] LABS: INFLUENZA A ANTIGEN Negative (Negative); INFLUENZA B ANTIGEN Negative (Negative)
[2020-01-08] MEDS ORDERED: AZITHROMYCIN 2250 MG PO (16:21)
[2020-01-08 16:30] VITALS: BP 125/75
== END 2020-01-08 16:30 | disposition home or self-care (01) ==
LOC: M.ERS 15:10
PROVIDERS: Nurse Practitioner Psychiatric/Mental Health
DX: U07.1 COVID-19 (principal); J01.90 Acute sinusitis, unspecified; F31.9 Bipolar disorder, unspecified; F41.9 Anxiety disorder, unspecified; F17.210 Nicotine dependence, cigarettes, uncomplicated; Z88.6 Allergy status to analgesic agent

== ENCOUNTER 2020-09-21 17:21 | Emergency (ER) | payer OTHER ==
[~2020-09-21] VITALS: Ht 160 cm; Wt 90.7 kg
[~2020-09-21 17:21] MED LIST changes: +AUGMENTIN 500-1 EACH PO; +AZITHROMYCIN 2250 MG PO; +FLONASE 0.05%50 MCG NASAL
[2020-09-21] MEDS ORDERED: DEPAKOTE ER500 M1 PO (17:44)
[2020-09-21] MEDS ORDERED: PREDNISONE 20 M20 M1 PO (18:26)
[2020-09-21] MEDS ORDERED: PROAIR HFA8.5 GM INH (18:26)
[2020-09-21] MEDS ORDERED: APAP W/CODEINE1 TA2 PO (18:26)
[2020-09-21] MEDS ORDERED: ZPAK PO (18:26)
[2020-09-21] MEDS ORDERED: TESSALON PERLE100 MG PO (18:26)
[2020-09-21 19:06] VITALS: BP 135/95
== END 2020-09-21 19:07 | disposition home or self-care (01) ==
LOC: M.ERS 17:21
DX: J18.8 Other pneumonia, unspecified organism (principal); Z20.822 Contact with and (suspected) exposure to COVID-19; F17.210 Nicotine dependence, cigarettes, uncomplicated; Z88.6 Allergy status to analgesic agent

== ENCOUNTER 2020-12-06 00:59 | Emergency (ER) | payer OTHER ==
[~2020-12-06] VITALS: Ht 160 cm; Wt 90.7 kg
[~2020-12-06 00:59] MED LIST changes: +APAP W/CODEINE1 TA2 PO; +DEPAKOTE ER500 M1 PO; +PREDNISONE 20 M20 M1 PO
[2020-12-06] MEDS ORDERED: PROAIR HFA8.5 GM INH (01:49)
[2020-12-06] MEDS ORDERED: NASONEX17 GM NASAL (01:49)
[2020-12-06 02:14] VITALS: BP 125/85
== END 2020-12-06 02:14 | disposition home or self-care (01) ==
LOC: M.ERS 00:59
DX: U07.1 COVID-19 (principal); R05 Cough; R50.9 Fever, unspecified; M79.18 Myalgia, other site; F32.9 Major depressive disorder, single episode, unspecified; F41.9 Anxiety disorder, unspecified; F17.210 Nicotine dependence, cigarettes, uncomplicated; F12.90 Cannabis use, unspecified, uncomplicated; Z79.899 Other long term (current) drug therapy; Z88.5 Allergy status to narcotic agent

== ENCOUNTER 2020-12-07 00:58 | Emergency (ER) | payer OTHER ==
[~2020-12-07] VITALS: Ht 160 cm; Wt 90.7 kg
[~2020-12-07 00:58] MED LIST changes: +NASONEX17 GM NASAL
[2020-12-07 03:30] VITALS: BP 130/70
== END 2020-12-07 03:30 | disposition home or self-care (01) ==
LOC: M.ERS 00:58
DX: U07.1 COVID-19 (principal); M79.18 Myalgia, other site; F31.9 Bipolar disorder, unspecified; F41.9 Anxiety disorder, unspecified; F17.210 Nicotine dependence, cigarettes, uncomplicated; Z79.899 Other long term (current) drug therapy; Z88.8 Allergy status to other drugs, medicaments and biological substances

== ENCOUNTER 2021-05-26 22:01 | Emergency (ER) | payer OTHER ==
[~2021-05-26] VITALS: Ht 160 cm; Wt 83.9 kg
[2021-05-26] MEDS ORDERED: HYDROCODON-ACE1 EAC8 PO (23:27)
[2021-05-26 23:35] VITALS: BP 129/80
== END 2021-05-26 23:35 | disposition home or self-care (01) ==
LOC: M.ERS 22:01
DX: H92.02 Otalgia, left ear (principal); F31.9 Bipolar disorder, unspecified; F17.210 Nicotine dependence, cigarettes, uncomplicated; Z79.899 Other long term (current) drug therapy; Z88.8 Allergy status to other drugs, medicaments and biological substances